=== PATIENT | male | born 1995 ===

== ENCOUNTER 2021-07-27 02:33 | Emergency (ER) | payer SELFPAY ==
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
[2021-07-27 04:43] VITALS: BP 156/101
== END 2021-07-27 06:03 | disposition home or self-care (01) ==
LOC: ED 02:33
DX: Z04.1 Encounter for examination and observation following transport accident (principal); Z88.0 Allergy status to penicillin; V89.2XXA Person injured in unspecified motor-vehicle accident, traffic, initial encounter; Y93.89 Activity, other specified; Y92.89 Other specified places as the place of occurrence of the external cause; Y99.8 Other external cause status
CPT/HCPCS: 99282